=== PATIENT | female | born 1955 | race Caucasian/White ===

== ENCOUNTER 2019-07-17 08:53 | Day surgery (SDC) | payer BC ==
[2019-07-16 10:17] VITALS: BMI 29.6
[2019-07-17 10:01] VITALS: TEMP 98.2
[2019-07-17 10:44] VITALS: BP 120/72; PULSE 76
--- NOTE | 2019-07-19 12:57 | PATH ---
Surgical Pathology Report Patient Name: YOLANDA [facility]. Rec. #: [id number] /Age/Gender: 1955 (Age: 63) / F Account: [id number] [facility] Taken: 07/17/2019 Received: 07/17/2019 Reported: 07/19/2019 Physicians: DOCTOR TOBIAS Dimas Specimen(s) Received POLYP SIGMOID COLON Clinical History Screening Postoperative diagnosis: Colon polyps Final Diagnosis SIGMOID COLON, POLYP, BIOPSY: HYPERPLASTIC POLYP(S). Electronically Signed Yen Garcia M.D. Gross Description Received in formalin, labeled "biopsy polyp sigmoid colon" are 6 khan, irregular portions of soft tissue ranging from 0.1-0.2 cm. in greatest dimension. The specimens are submitted in toto in one cassette. /07/18/2019 [facility]07/18/2019
== END 2019-07-17 10:48 | disposition home or self-care (01) ==
LOC: FASU-ENDO 08:53
PROVIDERS: ATTEND Internal Medicine Gastroenterology
PROC: 0DBN8ZX Excision of Sigmoid Colon, Via Natural or Artificial Opening Endoscopic, Diagnostic (ICD-10-PCS; principal; 2019-07-17 09:35)
DX: Z12.11 Encounter for screening for malignant neoplasm of colon (principal); D12.5 Benign neoplasm of sigmoid colon; K64.4 Residual hemorrhoidal skin tags; K64.8 Other hemorrhoids